=== PATIENT | female | born 1995 | race Caucasian/White ===

== ENCOUNTER 2017-09-21 18:57 | Emergency (ER) | END 2017-09-22 01:55 | disposition home or self-care (01) ==

== ENCOUNTER 2018-09-29 22:57 | Emergency (ER) | payer SELFPAY ==
[~2018-09-29] VITALS: Ht 162.6 cm; Wt 67.5 kg
[~2018-09-29 22:57] MED LIST: IBUP800T48 PO; ONDA4TAB14 PO; SUMA50TA2 PO
[2018-09-29 23:00] VITALS: BP 142/61; PULSE 95; RESP 18; Ht 162.6 cm; Wt 67.5 kg
== END 2018-09-30 07:10 | disposition left against medical advice (07) ==
LOC: FTE 22:57
DX: Z53.21 Procedure and treatment not carried out due to patient leaving prior to being seen by health care provider (principal)

== ENCOUNTER 2018-12-28 23:55 | Outpatient (CLI) | payer SELFPAY ==
[~2018-12-28] VITALS: Ht 162.6 cm; Wt 67.7 kg
[2018-12-29 00:12] VITALS: BP 110/55; PULSE 87; RESP 17; Ht 162.6 cm; Wt 67.7 kg
--- NOTE | 2018-12-29 01:56 | PN ---
Triage Information Date/Time Reason for visit: Abd/pelvic pain Weeks of Gestation 23-year-old 4 para 2 with 23 weeks of gestation with estimated date of delivery April 27, 2019 Patient presents with chief complaint of abdominal pain She reports positive movement, denies vaginal bleeding or leaking fluid, denies uterine contractions /Para 4 para 2 Diabetes: none Hypertention: none Objective Vital Signs Date Temp Pulse Resp B/P (MAP) Pulse Ox O2 O2 Flow FiO2 Time Delivery Rate 12/29/18 98.4 87 17 110/55 Room Air 00:12 (73) Heart Rate: 140's Contractions: None Results/Medications Results 24 hrs Laboratory Tests Test 12/29/18 00:25 Urine Color YELLOW Urine Clarity CLEAR Urine pH 6.0 Urine Specific [place] 1.016 Urine Ketones NEGATIVE Urine Nitrite NEGATIVE Urine Bilirubin NEGATIVE Urine Urobilinogen 1+ H Urine Leukocyte Esterase TRACE A Urine Microscopic RBC 1 Urine Microscopic WBC 3 Urine Squamous Epithelial Cells FEW Urine Bacteria FEW A Urine Hemoglobin NEGATIVE Urine Glucose NEGATIVE Urine Total Protein NEGATIVE Hematology - 72 Hrs Test 12/29/18 02:32 Hematocrit 30.8 % (37.0-47.0) L Hemoglobin 10.0 g/dl (12.0-16.0) L Mean Corpuscular Hemoglobin 28.9 pg (29.0-33.0) L Mean Corpuscular Hemoglobin Concent 32.5 g/dl (32.0-37.0) Mean Corpuscular Volume 89.0 fl (82.0-101.0) Mean Platelet Volume 9.7 fl (7.4-10.4) Platelet Count 181 10^3/UL (140-415) Red Blood Count 3.46 10^6/ul (4.20-5.40) L Red Cell Distribution Width 14.3 % (11.5-14.5) White Blood Count 10.8 10^3/ul (4.8-10.8) Chemistry Test 12/29/18 02:32 Sodium Level 138 mmol/L (135-144) Potassium Level 3.5 mmol/L (3.5-5.1) Chloride Level 106 mmol/L (97-110) Carbon Dioxide Level 23 mmol/L (21-31) Anion Gap 9 (5-13) Blood Urea Nitrogen 8 mg/dl (7-20) Creatinine 0.37 mg/dl (0.44-1.00) L Est Glomerular Filtrat Rate mL/min > 60 mL/min (>60) Glucose Level 92 mg/dl (70-220) Calcium Level 8.9 mg/dl (8.4-10.2) Total Bilirubin 0.2 mg/dl (0.2-1.3) Direct Bilirubin 0.00 mg/dl (0.00-0.20) Indirect Bilirubin 0.2 mg/dl (0-1.1) Aspartate Amino Transf (AST/SGOT) 18 IU/L (15-46) Alanine Aminotransferase (ALT/SGPT) 18 IU/L (13-69) Alkaline Phosphatase 58 IU/L (42-121) Total Protein 6.3 g/dl (6.1-8.1) Albumin 3.4 g/dl (3.3-4.9) Globulin 2.90 g/dl (1.3-3.2) Albumin/Globulin Ratio 1.17 Imaging Results PROCEDURE: Ultrasound Biophysical profile with amniotic fluid index with transvaginal CLINICAL INDICATION: Pain TECHNIQUE: Color and ward-scale ultrasound images of an intrauterine gestation were obtained. COMPARISON: None FINDINGS: A single live intrauterine gestation is identified in cephalic position with an estimated heart rate of 154 beats per minute. The placenta is located anteriorly. There is no evidence of placental abruption. Maximum vertical pocket equals 6.9 cm. The length of the cervix on transvaginal ultrasound equals 6.95 cm. Cervix is closed and competent. There is appearance of a small Nabothian cyst in the cervix. movement 2/2. tone 2/2. breathing movement 2/2. Qualitative AFV 2/2 Total biophysical profile 02/19 IMPRESSION: 02/19 biophysical profile. Maximal vertical pocket equals 6.9 cm. RPTAT: HJES .Navneet Cheung MD, MD Date Time Electronically viewed and signed by .Navneet Cheung MD, on 12/29/2018 01:53 .S/ CC: ORLY ARRIAGA MD [phone] PROCEDURE: US Abdomen complete. CLINICAL INDICATION: Abdominal pain TECHNIQUE: Multiple real-time images were acquired of the patient's abdomen and retroperitoneum utilizing a high resolution transducer. COMPARISON: None FINDINGS: The liver demonstrates normal echogenicity and size and no focal lesions are seen. The gallbladder is contracted. There is cholelithiasis with multiple gallstones in the gallbladder. There is no pericholecystic fluid or gallbladder wall thickening. No intra or extrahepatic biliary dilatation is seen. The common bile duct measures 2.9 mm in maximal dimension. The visualized portions of the pancreas are unremarkable. There is no splenomegaly. No free fluid is identified. The kidneys are normal size, and demonstrate normal echogenicity and morphology. The right kidney measures 11.8 cm in long dimension. The left kidney measures 12.5 cm. There is no dilatation of the pelvicaliceal systems bilaterally. There are no perinephric fluid collections. There are no areas of increased echogenicity to suggest nephrolithiasis. No aneurysm of the proximal or mid abdominal aorta is seen. The visualized inferior vena cava is unremarkable. IMPRESSION: Contracted gallbladder Cholelithiasis with multiple gallstones in the gallbladder. Otherwise unremarkable examination as noted above. Please see above. RPTAT: HJES .Navneet Cheung MD, MD Date Time Electronically viewed and signed by .Navneet Cheung MD, on 12/29/2018 01:56 .S/ CC: ORLY ARRIAGA MD [phone] Disposition: Discharge Assessment/Plan Contracted gallbladder Cholelithiasis with multiple gallstones in the gallbladder Patient was counseled regarding her diet Patient was recommended to have nutritional counseling done as outpatient with [facility] Patient counseled to increase p.o. fluid intake Patient instructed to follow-up with [facility] in 1 to 2 days ORLY ARRIAGA MD Dec 29, 2018 01:55
--- NOTE | 2018-12-29 04:11 | TRIAGE ---
OB Triage Datetime Report Generated by CPN: 12/29/2018 04:11 Datetime: 12/29/2018 03:44 Labor Evaluation Frequency: none Monitor Mode: External (Annotations: removed) Datetime: 12/29/2018 03:00 Labor Evaluation Frequency: none Monitor Mode: External Datetime: 12/29/2018 02:40 Pain Assessment Pain Scale: 4 Pain Presence: Constant Pain Type: Sharp Pain Location: Abdomen (Annotations: RUQ ) Pain Relief Measures: Comfort Measures Datetime: 12/29/2018 02:00 Labor Evaluation Frequency: none Monitor Mode: External Datetime: 12/29/2018 01:10 Resting Tone [place]: Relaxed Contraction Comments: Abdomen soft. No contractions palpated Pain Assessment Pain Scale: 5 Pain Presence: Constant Pain Type: Sharp Pain Location: Abdomen (Annotations: RUQ) Pain Relief Measures: Comfort Measures Datetime: 12/29/2018 01:00 Labor Evaluation Frequency: none Monitor Mode: External Datetime: 12/29/2018 00:31 EGA: 22.6 Datetime: 12/29/2018 00:22 Time Provider Notified: 12/29/2018 00:22 Datetime: 12/29/2018 00:12 Stage of : OB Triage Assessment Type: Triage Maternal Assessment Level of Consciousness: Keenly Alert, Responsive DTR's/Clonus: DTRs 2+; No Clonus Headache: Denies Blurred Vision: No Respiratory Effort: Unlabored; Regular Rhythm; Equal Expansion Breath Sounds, Left: Clear and Equal Breath Sounds, Right: Clear and Equal Nausea/Vomiting: Denies RUQ Epigastric Pain: Present Lower Extremities Edema: None Degree: None Upper Extremities Edema: None Degree: None Facial Edema: None Temperature Route: Oral Fall Risk Assessment History of Falling: (0) No Secondary Diagnosis: (0) No Ambulatory Aid: (0) Bedrest/Nurse Assist IV Therapy: (0) No Gait: (0) Normal/Bedrest/Immobile Mental Status: (0) Oriented to Own Ability Fall Score: 0 Fall Risk Score Definition: No Risk: No action required Contraction Comments: Patient denies feeling contractions at this time Heart Rate Monitor Mode: Doppler Comments: Patient states she feels active movement Pain Assessment Pain Scale: 9 Pain Presence: Constant Pain Type: Sharp Pain Location: Abdomen (Annotations: right upper quadrant) Pain Relief Measures: Comfort Measures Datetime: 12/29/2018 00:09 Monitor Mode: External (Annotations: applied) Resting Tone [place]: Relaxed Contraction Comments: Abdomen soft. No contractions palpated. Datetime: 12/29/2018 00:05 Time of Arrival: 12/28/2018 23:50 Arrived By: Ambulatory Arrived From: Home Chief Complaint: Right upper quadrant pain 10 Movement: Present Contractions: Denies/Absent Rupture of Membranes: Denies Vaginal Bleeding: None Vaginal Discharge: Denies Recent Sexual Intercouse: Yes Abdominal Trauma: Not Applicable Patient Complaints: Epigastric Pain; Other Time Provider Notified: 12/29/2018 00:22 Provider Notified: Dr. Owens Initial Plan: Asa Waggoner
== END 2018-12-29 03:57 | disposition home or self-care (01) ==
LOC: L-D 23:55 → OBT 23:55
PROVIDERS: ATTEND Specialist
DX: O99.612 Diseases of the digestive system complicating pregnancy, second trimester (principal); K80.20 Calculus of gallbladder without cholecystitis without obstruction; Z3A.24 24 weeks gestation of pregnancy
CPT/HCPCS: 76700; 76817; 76818; 80053; 81001; 85025; 87086; G0463

== ENCOUNTER 2019-01-23 15:14 | Outpatient (CLI) | payer OTHER ==
[~2019-01-23] VITALS: Ht 162.6 cm; Wt 68.8 kg
[2019-01-23 16:18] VITALS: Ht 162.6 cm; Wt 68.8 kg
--- NOTE | 2019-01-23 17:24 | HP ---
Date/Time of Note Date/Time of Note DATE: 01/23/19 TIME: 17:23 OB - History Hx of Present Free Text/Dictation 23 YO with EDC 04-27-2019 with IUP at 26.4 weeks who reports with decreased movements. she denies LOF per vagina or vaginal bleeding. she denies UC. Care: [facility] Ultrasounds: Normal mid trimester US Obstetrical Complications: None Medical Complications: None Past Family/Social History * Past Medical, Surgical, Family and Obstetric Histories reviewed from chart. OB Admission Exam Physical Exam HEENT: WNL Heart: Rhythm Normal Lungs: Clear, Equal Abdomen: WNL Extremities: Normal Reflexes: Normal OB Assessment/Plan Other Assessment: IUP at 26.4 weeks decreased FM Other plan: BPP BRYAN MCBRIDE MD Jan 23, 2019 17:24
[2019-01-23] MEDS ORDERED: PREN-6 PO (17:26)
== END 2019-01-23 17:30 | disposition home or self-care (01) ==
LOC: OBT 15:14 → L-D 15:15 → OBT 17:30
PROVIDERS: ATTEND Specialist
DX: O36.8120 Decreased fetal movements, second trimester, not applicable or unspecified (principal); Z3A.26 26 weeks gestation of pregnancy
CPT/HCPCS: 76818; Z7500; G0463

== ENCOUNTER 2019-02-14 22:00 | Outpatient (CLI) | payer OTHER ==
[~2019-02-14] VITALS: Ht 162.6 cm; Wt 70.3 kg
[~2019-02-14 22:00] MED LIST changes: +DOCO100C PO; -IBUP800T48 PO; +OMEG-135 PO; -ONDA4TAB14 PO; +PREN-6 PO; -SUMA50TA2 PO
[2019-02-14 22:30] VITALS: BP 101/61; PULSE 94; RESP 18; Ht 162.6 cm; Wt 70.3 kg
--- NOTE | 2019-02-15 01:22 | PN ---
Triage Information Date/Time 02/15/19 Reason for visit: DFM (for 3days) Weeks of Gestation 29w5d /Para Diabetes: none Hypertention: none Objective Vital Signs Date Temp Pulse Resp B/P (MAP) Pulse Ox O2 O2 Flow FiO2 Time Delivery Rate 02/14/19 98.6 94 18 101/61 Room Air 22:30 (74) Heart Rate: 140's Heart Rate Comments CAT I Contractions: None Results/Medications Imaging Results BPP 02/19 DAYDAY 16.9 cephalic Disposition: Discharge Assessment/Plan A IUP 29w5d DFM P discharge home with routine instructions to [facility] for DFM after eat and monitor [id number] ,still not moving ask not to wait long time as she did today ДМИТРИЙ KING MD Feb 15, 2019 01:22
--- NOTE | 2019-02-15 09:36 | TRIAGE ---
OB Triage Datetime Report Generated by CPN: 02/15/2019 09:36 Datetime: 02/15/2019 00:52 Stage of : OB Triage Labor Evaluation Frequency: X1/30MIN Monitor Mode: External Duration (sec)2399: 50 Quality: Mild Pattern: Normal: <= 5 Contractions in 10 Minutes Resting Tone [place]: Relaxed Heart Rate FHR Baseline Rate: 140 Monitor Mode: External US Variability: Moderate 6-25 bpm Accelerations: 15X15 Decelerations: None Category: Category I Datetime: 02/15/2019 00:20 Stage of : OB Triage Labor Evaluation Frequency: X1/30MIN Monitor Mode: External Duration (sec)2399: 50 Quality: Mild Pattern: Normal: <= 5 Contractions in 10 Minutes Resting Tone [place]: Relaxed Heart Rate FHR Baseline Rate: 140 Monitor Mode: External US Variability: Moderate 6-25 bpm Accelerations: 15X15 Decelerations: None Category: Category I Datetime: 02/14/2019 23:50 Stage of : OB Triage Labor Evaluation Frequency: X1/30MIN Monitor Mode: External Duration (sec)2399: 50 Quality: Mild Pattern: Normal: <= 5 Contractions in 10 Minutes Resting Tone [place]: Relaxed Heart Rate FHR Baseline Rate: 150 Monitor Mode: External US Variability: Moderate 6-25 bpm Accelerations: 15X15 Decelerations: None Category: Category I Datetime: 02/14/2019 23:20 Stage of : OB Triage Labor Evaluation Frequency: IRRITABILITY Monitor Mode: External Duration (sec)2399: 20-30 Quality: Mild Pattern: Normal: <= 5 Contractions in 10 Minutes Resting Tone [place]: Relaxed Heart Rate FHR Baseline Rate: 150 Monitor Mode: External US Variability: Moderate 6-25 bpm Accelerations: 15X15 Decelerations: None Category: Category I Datetime: 02/14/2019 22:33 Stage of : OB Triage Datetime: 02/14/2019 22:30 Stage of : OB Triage Temperature Route: Oral Pain Assessment Pain Scale: 0 Pain Presence: None/Denies Pain Type: N/A Datetime: 02/14/2019 22:23 Time of Arrival: 02/14/2019 21:55 EGA: 29.5 Arrived By: Ambulatory Arrived From: Home Chief Complaint: Decreased Movement Movement: Decreased Contractions: Denies/Absent Rupture of Membranes: Denies Vaginal Bleeding: None Vaginal Discharge: Denies Recent Sexual Intercouse: Denies Abdominal Trauma: Not Applicable Patient Complaints: Other Time Provider Notified: 02/14/2019 22:33 Provider Notified: Initial Plan: BPP/DAYDAY Datetime: 01/23/2019 17:36 Time of Arrival: 02/14/2019 21:55 EGA: 29.5 Arrived By: Ambulatory Arrived From: Home Movement: Decreased Rupture of Membranes: Denies Vaginal Bleeding: None Vaginal Discharge: Denies Recent Sexual Intercouse: Denies Abdominal Trauma: Not Applicable Patient Complaints: None Datetime: 01/23/2019 17:00 Monitor Mode: External Resting Tone [place]: Relaxed Heart Rate FHR Baseline Rate: 140 Monitor Mode: External US FHR Baseline Changes: No Baseline Change Variability: Moderate 6-25 bpm Accelerations: 15X15 Decelerations: None Category: Category I Pain Presence: None/Denies Datetime: 01/23/2019 16:26 Time of Arrival: 01/23/2019 15:08 EGA: 26.4 Arrived By: Ambulatory Arrived From: Home Chief Complaint: Decreased movement Movement: Decreased Contractions: Denies/Absent Rupture of Membranes: Denies Vaginal Bleeding: Normal Show Vaginal Discharge: Denies Recent Sexual Intercouse: Denies Abdominal Trauma: Not Applicable Patient Complaints: Other Initial Plan: NST, BPP Datetime: 01/23/2019 16:00 Monitor Mode: External Resting Tone [place]: Relaxed Heart Rate FHR Baseline Rate: 140 Monitor Mode: External US FHR Baseline Changes: No Baseline Change Variability: Moderate 6-25 bpm Accelerations: 15X15 Decelerations: None Category: Category I Pain Presence: None/Denies Datetime: 01/23/2019 15:53 Assessment Type: Triage Maternal Assessment Level of Consciousness: Keenly Alert, Responsive DTR's/Clonus: DTRs 2+; No Clonus Headache: Denies Blurred Vision: No Respiratory Effort: Unlabored; Regular Rhythm; Equal Expansion Breath Sounds, Left: Clear and Equal Breath Sounds, Right: Clear and Equal Nausea/Vomiting: Denies RUQ Epigastric Pain: Denies Lower Extremities Edema: Bilateral Lower Extremities Degree: Trace Upper Extremities Edema: None Degree: None Facial Edema: None Fall Risk Assessment History of Falling: (0) No Secondary Diagnosis: (0) No Ambulatory Aid: (0) Bedrest/Nurse Assist IV Therapy: (0) No Gait: (0) Normal/Bedrest/Immobile Mental Status: (0) Oriented to Own Ability Fall Score: 0 Fall Risk Score Definition: No Risk: No action required Datetime: 12/29/2018 00:31 EGA: 22.6 Datetime: 12/29/2018 00:12 Fall Score: 0 Fall Risk Score Definition: No Risk: No action required
== END 2019-02-15 01:02 | disposition home or self-care (01) ==
LOC: OBT 22:00 → L-D 22:00 → OBT 02-15 01:02
PROVIDERS: ATTEND Specialist
DX: O36.8130 Decreased fetal movements, third trimester, not applicable or unspecified (principal); Z3A.29 29 weeks gestation of pregnancy
CPT/HCPCS: 76818; Z7500; G0463

== ENCOUNTER 2019-03-02 23:47 | Outpatient (CLI) | payer OTHER ==
[~2019-03-02] VITALS: Ht 162.6 cm; Wt 71.9 kg
[~2019-03-02 23:47] MED LIST changes: +ACET500C5 PO
[2019-03-03 00:20] VITALS: BP 116/58; PULSE 96; RESP 18; Ht 162.6 cm; Wt 71.9 kg
== END 2019-03-03 01:15 | disposition home or self-care (01) ==
LOC: OBT 23:47 → L-D 23:49 → OBT 03-03 01:15
PROVIDERS: ATTEND Specialist
DX: O24.414 Gestational diabetes mellitus in pregnancy, insulin controlled (principal); Z3A.31 31 weeks gestation of pregnancy; O26.893 Other specified pregnancy related conditions, third trimester; R06.6 Hiccough
CPT/HCPCS: G0463